=== PATIENT | female | born 1945 | race Caucasian/White ===

== ENCOUNTER 2024-03-02 22:27 | Inpatient (IN) ==
--- NOTE | 2024-03-02 22:38 | Emergency Department Note ---
History of Present Illness General Chief complaint: Illness Stated complaint: COLD LIKE SYMPTOMS History of Present Illness This 78-year-old female with hyperlipidemia, hypertension, and COPD presents ER complaining of fever, chills, cough, congestion and shortness of breath for the past few days steadily getting worse. Other family members have pneumonia. EMS states her sats were in the mid 80s and improved with nebulizer and oxygen. Patient states she does not smoke. Patient denies chest pain, abdominal pain, vomiting, diarrhea. Pulse ox is 90% on room air. Home Medications Medication Instructions Recorded Confirmed Type ascorbate calcium (vitamin C) 500 500 mg PO DAILY 04/07/19 07/06/23 History mg tablet multivitamin 1 cap PO DAILY 04/07/19 07/06/23 History omega-3 fatty acids 1,000 mg 1,000 mg PO DAILY 04/07/19 07/06/23 History capsule (Fish Oil Concentrate) calcium carb-magnesium carb 250 1 tab PO DAILY 06/28/20 07/06/23 History mg-300 mg tablet cholecalciferol (vitamin D3) 25 25 mcg PO DAILY 06/28/20 07/06/23 History mcg (1,000 unit) capsule fluticasone furoate 200 1 inh inhalation DAILY #3 Inhalers 02/26/22 07/06/23 Rx mcg-vilanterol 25 mcg/dose inhalation powder (Breo Ellipta) losartan 25 mg tablet 25 mg PO DAILY #90 tabs 09/15/23 Rx albuterol sulfate 90 mcg/actuation 2 puff inhalation QID PRN 01/21/24 Rx aerosol inhaler shortness of breath or wheezing #18 grams Allergies Allergy/AdvReac Type Severity Reaction Status Date / Time amlodipine Allergy Verified 07/06/23 09:47 Past Med/Surg History Problem List (Updated 03/03/24 @ 00:56 by Karely Rob PA-C) Hypoxia (Acute) Infection due to human metapneumovirus (hMPV) (Acute) Acute exacerbation of chronic obstructive pulmonary disease (Acute) Allergic rhinitis Acute sinusitis Nail abnormalities Hyperlipidemia (Chronic) HTN (hypertension), benign (Chronic) COPD (chronic obstructive pulmonary disease) (Chronic) Social anxiety disorder (Chronic) Routine health maintenance (Chronic) Tachycardia (Chronic) Medical History Hyperlipidemia Social anxiety disorder COPD (chronic obstructive pulmonary disease) HTN (hypertension), benign Surgical History Hx of tonsillectomy Family History Denies family history of Ovarian cancer Prostate cancer Myocardial infarction Breast cancer Colorectal cancer Social History Smoking Status: Former smoker Second Hand Exposure: No; Do You Dip or Chew Tobacco: No; Hx Alcohol Use: No Hx Substance Use: No Preferred Language: Yakut Communication Ability: Effective Visual Impairment: No Limitations Hearing Ability: Normal Home Appliance Tech Required: No Beliefs That Will Affect Care: None marital status: Current Living Situation: Alone current occupational status: retired How many Children do You have: 2 Feels Safe at Home: Yes Childhood Exposure to Second-Hand Smoke: Yes Diet: regular caffeine: Yes during the past year weight has: remained stable Dental Care, Regularly: Yes Physical Activity Frequency: 3-4 Times per Week Seatbelt Use: always Sunscreen Use: Yes Assistive Devices: None Review of Systems A total of 10 systems reviewed and were otherwise negative Physical Exam Vital Signs Vital Signs - 24 hr 03/02/24 22:39 03/02/24 22:40 03/02/24 22:40 Temperature 37.1 C 37.1 C Temperature Source Oral Oral Pulse Rate 106 H 107 H Pulse Rate [Apical] 103 H Pulse Rate from SpO2 Sensor Pulse Rhythm [Apical] Regular Respiratory Rate 20 23 Respiratory Effort / Characteristics Non-Labored Spontaneous Non-Labored Spontaneous Respiratory Depth Normal Normal Respiratory Pattern Regular Blood Pressure 158/96 H Blood Pressure [Right Arm] 158/96 H Blood Pressure Mean 116 Blood Pressure Mean [Right Arm] 116 Pulse Oximetry 94 93 Oxygen Delivery Method Nasal Cannula Nasal Cannula Oxygen Flow Rate 2 2 Sepsis Recent Fever Within 48 Hours No Sepsis New/Unexplained Change in Mental Status No Sepsis Action Taken by Nursing No Action Required 03/02/24 22:40 03/02/24 22:57 03/02/24 23:39 Temperature Temperature Source Pulse Rate 101 H 98 H Pulse Rate [Apical] Pulse Rate from SpO2 Sensor 101 H 99 H Pulse Rhythm [Apical] Respiratory Rate 22 28 H Respiratory Effort / Characteristics Respiratory Depth Respiratory Pattern Blood Pressure 142/93 H 169/109 H Blood Pressure [Right Arm] Blood Pressure Mean 109 129 Blood Pressure Mean [Right Arm] Pulse Oximetry 93 99 94 Oxygen Delivery Method Nasal Cannula Nasal Cannula Oxygen Flow Rate 2 3 Sepsis Recent Fever Within 48 Hours Sepsis New/Unexplained Change in Mental Status Sepsis Action Taken by Nursing 03/03/24 00:30 03/03/24 01:54 03/03/24 02:03 Temperature Temperature Source Pulse Rate 93 H 80 79 Pulse Rate [Apical] Pulse Rate from SpO2 Sensor 93 H 80 79 Pulse Rhythm [Apical] Respiratory Rate 20 17 18 Respiratory Effort / Characteristics Respiratory Depth Respiratory Pattern Blood Pressure 145/83 H 148/96 H 125/71 Blood Pressure [Right Arm] Blood Pressure Mean 103 113 89 Blood Pressure Mean [Right Arm] Pulse Oximetry 91 92 91 Oxygen Delivery Method Nasal Cannula Nasal Cannula Nasal Cannula Oxygen Flow Rate 3 3 3 Sepsis Recent Fever Within 48 Hours Sepsis New/Unexplained Change in Mental Status Sepsis Action Taken by Nursing VITALS: Vitals are noted on the nurse's note and reviewed by myself. Vital signs stable. GENERAL: Pleasant elderly female coughing, in no acute distress, nondiaphoretic, well-developed well-nourished. SKIN: The skin was without rashes, erythema, edema, or bruising. There is no tenting of the skin. Capillary reflex less than 2 seconds. HEAD: Normocephalic atraumatic. EARS: External auditory canals clear EYES: Pupils equal round and reactive to light and accommodation. Conjunctivae without injection, sclerae without icterus. Extraocular movements intact. NOSE: Patent, no discharge. MOUTH: Mucous membranes moist. Pharynx without erythema or exudate. Uvula midline. Airway patent. Tongue does not deviate. NECK: Supple without nuchal rigidity. No lymphadenopathy. No thyromegaly. Cervical spine is nontender. No JVD. HEART: Regular rate and rhythm LUNGS: Diffuse inspiratory and end expiratory wheezes. no retractions or accessory muscle use. ABDOMEN: Positive bowel sounds x 4. Normal tympanic percussion. Soft, nontender, without masses or organomegaly. Li sign negative. No guarding or rebound tenderness. No CVA tenderness MUSCULOSKELETAL: No muscle atrophy, erythema, or edema noted. NEURO: Patient was alert and oriented to person place and time. Normal sensation to light and sharp touch. No focal neurological deficits. Course Administered Medications Discontinued Medications Albuterol (Albut/Ipratrop 3mg/0.5mg Neb 3 Ml Vial) 3 ml NEB NOW STA; Protocol Stop: 03/02/24 22:36 Last Admin: 03/02/24 22:51 Dose: 3 ml Documented By: ALVERTO Piperacillin Sod/Tazobactam Sod (Zosyn) 4.5 gm in 100 mls @ 200 mls/hr IV NOW ONE; Protocol Stop: 03/02/24 23:58 Last Infusion: 03/03/24 02:09 Dose: Infused Documented By: Admin: 03/03/24 00:43 Dose: 200 mls/hr Documented By: XIMENA Ioversol (Optiray 320 125ml) 119 ml IV ONCE ONE Stop: 03/03/24 00:18 Last Admin: 03/03/24 00:18 Dose: 119 ml Documented By: JEANETTE Methylprednisolone (Methylprednisolone 125 Mg/2 Ml Vial) 125 mg IV NOW STA Stop: 03/02/24 22:36 Last Admin: 03/02/24 22:50 Dose: 125 mg Documented By: ALVERTO Medical Decision Making Medical Records Attestation: I reviewed the patient's medical records. Home Medications Current Medication List: was personally reviewed by me Laboratory Data Attestation: I reviewed the patient's lab results. 03/02/24 22:37 03/02/24 22:37 Lab Results 03/02/24 03/02/24 03/03/24 Range/Units 22:37 23:42 00:42 WBC 8.19 (4.8-10.8) K/ul RBC 5.13 (4.20-5.40) M/uL Hgb 15.6 (12.0-16.0) g/dl Hct 45.6 (37.0-47.0) % MCV 88.9 (80.0-100.0) fL MCH 30.4 (25.0-34.0) pg MCHC 34.2 (32.0-36.0) g/dL RDW Std Deviation 41.8 (36.4-46.3) fL RDW Coeff of Pravin 12.8 (11.5-14.5) % Plt Count 298 (130-400) K/uL MPV 10.5 (9.4-12.4) fL Immature Gran % (Auto) 0.1 % Neut % (Auto) 62.6 % Lymph % (Auto) 24.3 % [place] % (Auto) 9.4 % Eos % (Auto) 2.4 % Baso % (Auto) 1.2 % Neut # (Auto) 5.12 (1.40-6.50) K/uL Lymph # (Auto) 1.99 (1.20-3.40) K/uL [place] # (Auto) 0.77 H (0.11-0.59) K/uL Eos # (Auto) 0.20 (0.00-0.50) K/uL Baso # (Auto) 0.10 (0.00-0.20) K/uL Immature Gran # (Auto) 0.01 (0.01-0.20) K/uL VBG pH 7.40 (7.36-7.41) VBG pCO2 50 (38-50) mmHg VBG pO2 29 mmHg VBG HCO3 31 mmol/L VBG O2 Saturation < 60.0 % VBG Base Excess 5.0 mEq/L Sodium 138 (136-145) mmol/L Potassium 3.4 L (3.5-5.1) mmol/L Chloride 101 (98-107) mmol/L Carbon Dioxide 27 (21-32) mmol/L Anion Gap 10 (3-11) BUN 9 (6-23) mg/dl Creatinine 0.70 (0.6-1.2) mg/dl Est Cr Clr Drug Dosing 56.9 ml/min eGFR 88.47 BUN/Creatinine Ratio 12.9 (10-20) Glucose 112 H (70-99(Fasting)) mg/dl Lactate 0.8 (0.4-2.0) mmol/L Calcium 9.2 (8.6-10.3) mg/dl Magnesium 2.1 (1.7-2.4) mg/dl Total Bilirubin 0.5 (0.2-1.0) mg/dl Direct Bilirubin 0.0 (0-0.2) mg/dl AST 26 (13-39) U/L ALT 14 (7-52) U/L Alkaline Phosphatase 94 (34-104) U/L Troponin I High Sens 4.4 (0-14) pg/ml Total Protein 7.6 (6.0-8.3) gm/dl Albumin 4.3 (3.4-5.0) gm/dl Procalcitonin 0.05 (0-0.5) ng/ml Urine Color Yellow Urine Appearance Clear (Clear) Urine pH 6.5 (4.5-7.5) Ur Specific [place] 1.027 (1.000-1.030) Urine Protein Negative (Negative) Urine Glucose (UA) Negative (Negative) Urine Ketones 2+ H (Negative) Urine Blood Negative (Negative) Urine Nitrite Negative (Negative) Urine Bilirubin Negative (Negative) Urine Urobilinogen Negative (Negative) Ur Leukocyte Esterase 2+ H (Negative) Urine WBC (Auto) 6-10 H (0-5) /hpf Urine RBC (Auto) 0-2 (0-2) /hpf U Hyaline Cast (Auto) 0-2 (0-2) /lpf U Epithel Cells (Auto) 0-2 (0-2) /hpf Urine Bacteria (Auto) None Seen (None Seen) Adenovirus (PCR) Not Detected (NotDetected) B. pertussis DNA (PCR) Not Detected (NotDetected) B.parapertussis DNA PCR Not Detected (NotDetected) C. pneumoniae DNA (PCR) Not Detected (NotDetected) Coronavirus OC43 (PCR) Not Detected (NotDetected) Coronavirus HKU1 (PCR) Not Detected (NotDetected) Coronavirus 229E (PCR) Not Detected (NotDetected) SARS-CoV-2 (PCR) Not Detected (NotDetected) Coronavirus NL63 (PCR) Not Detected (NotDetected) Human Metapneumovir PCR DETECTED A (NotDetected) Influenza Type A (PCR) Not Detected (NotDetected) Influenza Type B (PCR) Not Detected (NotDetected) M. pneumoniae (PCR) Not Detected (NotDetected) Parainfluenza 1 (PCR) Not Detected (NotDetected) Parainfluenza 2 (PCR) Not Detected (NotDetected) Parainfluenza 3 (PCR) Not Detected (NotDetected) Parainfluenza 4 (PCR) Not Detected (NotDetected) RSV (PCR) Not Detected (NotDetected) Entero/Rhino (PCR) Not Detected (NotDetected) Imaging Data Attestation: I personally reviewed and interpreted this imaging study as follows: Radiologist's Impression: Chest X-Ray 03/02/24 22:36 Exam(s): XR CXR 1 VIEW EXAM: XR Chest, 1 View CLINICAL HISTORY: Sepsis. TECHNIQUE: Frontal view of the chest. COMPARISON: No relevant prior studies available. FINDINGS: Lungs: No focal consolidation. Presumed chronic reticulonodular interstitial changes involving the lower lung zones. No significant fibrotic changes suspected. The pulmonary vasculature demonstrates no significant radiographic abnormality. Pleural space: Unremarkable. No pneumothorax. No large pleural effusion. Heart: Unremarkable. No cardiomegaly. Mediastinum: No significant abnormality identified. The trachea is midline. Bones/joints: Unremarkable. No acute fracture. IMPRESSION: No focal consolidation or acute cardiopulmonary process identified. Electronically signed by: Terry Villegas MD 03/03/24 00:48 AM Chest CTA 03/02/24 23:29 EXAM: CT angio chest PE protocol CLINICAL HISTORY: pt c/o SOB worsening this evening. pt states she has been sick since , but fel her symptoms had improved until 4 days ago. pt states her son has pneumonia currently. pt c/o productive cough w/ yellow sputum. afebrile currently. denies chest pain. 119 ml opti 320 PW TECHNIQUE: Contiguous axial images were obtained from the neck base through the upper abdomen following intravenous administration of iodinated contrast material. Angiographic images were processed, 3D MIP images were acquired for interpretation. If IV contrast material had not been administered, the likelihood of detecting abnormalities relevant to the patient's condition would have been substantially decreased. Coronal and sagittal 3-D MIPs were likewise performed and indicated to increase the sensitivity of detectin diffuse clinically relevant pathology. CT scan was performed according to ALARA (as low as reasonable achievable). COMPARISON: None. FINDINGS: Diffuse centrilobular and panlobular emphysema are noted involving bilateral lungs. Adequate contrast bolus without evidence of pulmonary embolism. The central airways are patent. The lungs are clear. No pleural effusion. The heart, aorta, and pulmonary arteries are of normal size and configuration. There are e coronary artery and aortic atherosclerotic calcifications. No pericardial effusion is identified. The thyroid is unremarkable. No mediastinal, hilar, or axillary lymphadenopathy is noted. No suspicious lytic or sclerotic osseous lesions are identified. IMPRESSION: Diffuse centrilobular and panlobular emphysema are noted involving bilateral lungs. No evidence of pulmonary embolism. Electronically signed by Dwight Griggs 03-03-2024 02:12 AM MDM Narrative Prior records/ancillary studies reviewed. Triage Nursing notes reviewed. Additional history obtained from EMS. The patient's history was concerning for breathing issues and fever. Differential diagnosis: Etiologies such as COPD exacerbation, viral syndrome, otitis, pharyngitis, pneumonia, influenza, meningitis, urinary tract infection, sepsis, bacteremia, as well as others were entertained. Physical examination: As above ER treatment provided: An order was placed for continuous cardiac monitoring. The monitor shows a rate of 60-100 with a sinus rhythm per my interpretation. Nebulizer, Solu-Medrol, Zosyn for possible pneumonia On reassessment the patient felt better. Diagnostics interpreted by me: ECG: Ordered for dyspnea EKG: Normal sinus, normal intervals, no acute ST-T wave changes. Impression sinus tachycardia 107 independently interpreted by myself The labs Independently Interpreted by myself revealed no worrisome leukocytosis, negative procalcitonin. Positive human metapneumovirus Blood cultures pending Imaging studies: Imaging was reviewed and read by radiology as above Consultation: A consultation was placed with hospitalist. The case was discussed and diagnostics were reviewed. The patient was evaluated in the ER for further treatment. This appears to be consistent with COPD exacerbation with human metapneumovirus. Patient was hypoxic on room air. She did improve after being medicated as above. Medicine was consulted case is discussed. She will be admitted to the medical service. By the evaluation outlined above emergent etiologies such as otitis, pharyngitis, meningitis, urinary tract infection, sepsis, bacteremia, as well as others were deemed relatively unlikely. The pt informed about the findings as listed above. All questions were answered and pleased with the treatment. The chart was completed utilizing [employer] Speech voice recognition software. Grammatical errors, random word insertions, pronoun errors, and incomplete sentences are an occassional consequence of this system due to software limitations, ambient noise, and hardware issues. Any formal questions or concerns about the content, text, or information contained within the body of this dictation should be directly addressed to the physician drug safety assistant for clarification. Impression & Plan Acute exacerbation of chronic obstructive pulmonary disease, Infection due to human metapneumovirus (hMPV), Hypoxia Discharge Plan Visit Data Chief Complaint: Illness Stated Complaint: COLD LIKE SYMPTOMS ED Provider: rKistine Lomas ED Midlevel Provider: Karely Rob Discharge Problem: Acute exacerbation of chronic obstructive pulmonary disease, Infection due to human metapneumovirus (hMPV), Hypoxia Patient Disposition: Admitted As Inpatient Condition: Fair Discharge Instructions Interventions: ED Discharge Assessment Last Done: 03/03/24 02:14 Forms Stand Alone Forms: My [facility] [employer] Prescriptions Prescriptions: No Action Breo Ellipta 200-25 mcg/dose blister with device 1 inh inhalation DAILY Qty: 3 1RF losartan 25 mg tablet 25 mg PO DAILY Qty: 90 1RF albuterol sulfate 90 mcg/actuation HFA aerosol inhaler 2 puff INH QID PRN (Reason: shortness of breath or wheezing) Qty: 18 1RF multivitamin Capsule 1 cap PO DAILY ascorbate calcium (vitamin C) 500 mg tablet 500 mg PO DAILY omega-3 fatty acids [Fish Oil Concentrate] 1,000 mg capsule 1,000 mg PO DAILY cholecalciferol (vitamin D3) 25 mcg (1,000 unit) capsule 25 mcg PO DAILY calcium carb-magnesium carb 250-300 mg tablet 1 tab PO DAILY Referrals Referrals: Nicky Aldana MD [Primary Care Provider] -
[2024-03-02] MEDS: methylPREDNISolone 125 MG/2 ML VIAL IV STA (22:50)
[2024-03-02] MEDS: ALBUT/IPRATROP 3MG/0.5MG NEB 3 ML VIAL NEB STA (22:51)
[2024-03-02 22:56] LABS: Basophils % (auto) 1.2 %; Eosinophils % (auto) 2.4 %; Hematocrit (blood only) 45.6 % (37.0-47.0); Hemoglobin 15.6 g/dl (12.0-16.0); Immature Granulocytes # (auto) 0.01 K/uL (0.01-0.20); Immature Granulocytes % (auto) 0.1 %; Lymphocytes # (auto) 1.99 K/uL (1.20-3.40); Lymphocytes % (auto) 24.3 %; Mean Corpuscular Hemoglobin 30.4 pg (25.0-34.0); Mean Corpuscular Hgb Conc 34.2 g/dL (32.0-36.0); Mean Corpuscular Volume 88.9 fL (80.0-100.0); Mean Platelet Volume 10.5 fL (9.4-12.4); Monocytes # (auto) 0.77 K/uL (0.11-0.59); Monocytes % (auto) 9.4 %; Neutrophils # (auto) 5.12 K/uL (1.40-6.50); Neutrophils % (auto) 62.6 %; Platelet Count 298 K/uL (130-400); RDW Coefficient of Variation 12.8 % (11.5-14.5); RDW Standard Deviation 41.8 fL (36.4-46.3); Red Blood Count 5.13 M/uL (4.20-5.40); White Blood Count 8.19 K/ul (4.8-10.8)
[2024-03-02 23:12] LABS: Albumin Level 4.3 gm/dl (3.4-5.0); BUN Creatinine Ratio 12.9 (10-20); Bilirubin,Total 0.5 mg/dl (0.2-1.0); Calcium 9.2 mg/dl (8.6-10.3); Creatinine Clr Calc Pharmacy 56.9 ml/min; Magnesium 2.1 mg/dl (1.7-2.4); Potassium 3.4 mmol/L (3.5-5.1); Total Protein 7.6 gm/dl (6.0-8.3)
[2024-03-02 23:18] LABS: Troponin I High Sensitivity 4.4 pg/ml (0-14)
--- NOTE | 2024-03-02 23:23 | Emergency Department Note ---
ED Visit Note I was consulted by the Advanced Practice Provider. I personally made/approved the management plan and take responsibility for the patient management. I performed a substantive portion of the visit. This includes the aspects of: -History/Physical -MDM
[2024-03-02 23:40] LABS: Adenovirus PCR Not Detected (NotDetected); Bordetella parapertussis PCR Not Detected (NotDetected); Bordetella pertussis PCR Not Detected (NotDetected); Chlamydia pneumoniae PCR Not Detected (NotDetected); Coronavirus 229E PCR Not Detected (NotDetected); Coronavirus CoV-2 (COVID19)PCR Not Detected (NotDetected); Coronavirus HKU1 PCR Not Detected (NotDetected); Coronavirus NL63 PCR Not Detected (NotDetected); Coronavirus OC43PCR Not Detected (NotDetected); Human Metapneumovirus PCR DETECTED (NotDetected); Influenza A PCR Not Detected (NotDetected); Influenza B PCR Not Detected (NotDetected); Mycoplasma pneumoniae PCR Not Detected (NotDetected); Parainfluenza Virus 1 PCR Not Detected (NotDetected); Parainfluenza Virus 2 PCR Not Detected (NotDetected); Parainfluenza Virus 3 PCR Not Detected (NotDetected); Parainfluenza Virus 4 PCR Not Detected (NotDetected); Respiratory Syncytial VirusPCR Not Detected (NotDetected); Rhinovirus/Enterovirus PCR Not Detected (NotDetected)
[2024-03-02 23:58] LABS: HCO3 VBG 31 mmol/L; Oxygen Saturation VBG < 60.0 %; PCO2 VBG 50 mmHg (38-50); PO2 VBG 29 mmHg
[2024-03-03] MEDS: OPTIRAY 320 125ml IV ONE (00:18)
[2024-03-03] MEDS: PIPERACILLIN/TAZOBACTAM 4.5 GM/100 ML BAG IV ONE (00:43)
--- NOTE | 2024-03-03 00:49 | XRay Report ---
Exam(s): XR CXR 1 VIEW EXAM: XR Chest, 1 View CLINICAL HISTORY: Sepsis. TECHNIQUE: Frontal view of the chest. COMPARISON: No relevant prior studies available. FINDINGS: Lungs: No focal consolidation. Presumed chronic reticulonodular interstitial changes involving the lower lung zones. No significant fibrotic changes suspected. The pulmonary vasculature demonstrates no significant radiographic abnormality. Pleural space: Unremarkable. No pneumothorax. No large pleural effusion. Heart: Unremarkable. No cardiomegaly. Mediastinum: No significant abnormality identified. The trachea is midline. Bones/joints: Unremarkable. No acute fracture. IMPRESSION: No focal consolidation or acute cardiopulmonary process identified. Electronically signed by: Terry Villegas MD 03/03/24 00:48 AM
[2024-03-03 00:59] LABS: Appearance Urine Clear (Clear); Bacteria Urine Automated None Seen (None Seen); Bilirubin Urine Negative (Negative); Blood Urine Negative (Negative); Cast Urine Automated 0-2 /lpf (0-2); Color Urine Yellow; Epithelial Cell Urine Auto 0-2 /hpf (0-2); Glucose Urine UA Negative (Negative); Ketones Urine 2+ (Negative); Leukocyte Esterase Urine 2+ (Negative); Nitrite Urine Negative (Negative); Protein Urine Negative (Negative); RBC Urine Automated 0-2 /hpf (0-2); Specific Gravity Urine 1.027 (1.000-1.030); Urobilinogen Urine Negative (Negative); pH Urine 6.5 (4.5-7.5)
--- NOTE | 2024-03-03 01:13 | History & Physical Report ---
Date of Service March 03, 2024 Assessment & Plan (1) Hypoxia: (2) Infection due to human metapneumovirus (hMPV): (3) Acute exacerbation of chronic obstructive pulmonary disease: Plan Human Metapneumovirus (hMPV) | Acute Hypoxemic Respiratory Failure | History of COPD -CXR shows no acute cardiopulmonary findings. CTA chest reads "Diffuse centrilobular and panlobular emphysema are noted involving bilateral lungs" -Respiratory biofire positive for human metapneumovirus -Negative procal, no leukocytosis. Afebrile. Blood cultures collected. Received Zosyn in ED, lower suspicion for bacterial etiology. -Currently on 3L NC at 92%, no baseline oxygen requirement. Wean as able -Ordered Duonebs PRN, Guaifenesin. With ?history of COPD will add azithromycin for anti-inflammatory properties -Repeat a.m. CBC Hypokalemia -K 3.4 on admission -Will replete and recheck BMP in a.m. Admit to: med/tele VTE Prophylaxis: Lovenox Diet: Heart healthy Code Status: DNR/DNI History of Present Illness Primary Care Provider: Nicky Aldana MD Albina Degroot is a 78 year-old female with medical history significant for HTN, HLD, tachycardia, COPD who presented to [facility] ED via EMS due to hypoxia. States she has been sick since about Thanksgi- has never fully recovered. States that she has many family members around her who are sick, states her son currently has pneumonia. States she lives alone, is independent in her daily activities but has not done much except sit at home for the past few days as she has felt unwell. States she had pneumonia about 7years ago and was given inhalers for that, but does not recall other pulmonary diagnoses in the past. Denies fever, but feels feverish. Decreased appetite but adequate PO intake. Denies nausea/vomiting/diarrhea. States her pulse ox before coming in was "in the 80s%". Endorses productive cough and worsening SOB, although feels that her breathing has improved since being on the oxygen in the ED. Denies chest pain. ED Course: -CXR -CTA chest -CBC, CMP, blood cultures, UA -Zosyn, IV solumedrol Allergies Allergy/AdvReac Type Severity Reaction Status Date / Time amlodipine Allergy Verified 07/06/23 09:47 Home Medications Medication Instructions Recorded Confirmed Type ascorbate calcium (vitamin C) 500 500 mg PO DAILY 04/07/19 07/06/23 History mg tablet multivitamin 1 cap PO DAILY 04/07/19 07/06/23 History omega-3 fatty acids 1,000 mg 1,000 mg PO DAILY 04/07/19 07/06/23 History capsule (Fish Oil Concentrate) calcium carb-magnesium carb 250 1 tab PO DAILY 06/28/20 07/06/23 History mg-300 mg tablet cholecalciferol (vitamin D3) 25 25 mcg PO DAILY 06/28/20 07/06/23 History mcg (1,000 unit) capsule fluticasone furoate 200 1 inh inhalation DAILY #3 Inhalers 02/26/22 07/06/23 Rx mcg-vilanterol 25 mcg/dose inhalation powder (Breo Ellipta) losartan 25 mg tablet 25 mg PO DAILY #90 tabs 09/15/23 Rx albuterol sulfate 90 mcg/actuation 2 puff inhalation QID PRN 01/21/24 Rx aerosol inhaler shortness of breath or wheezing #18 grams Past Med/Surg History Problem List Hypoxia (Acute) Infection due to human metapneumovirus (hMPV) (Acute) Acute exacerbation of chronic obstructive pulmonary disease (Acute) Allergic rhinitis Acute sinusitis Nail abnormalities Hyperlipidemia (Chronic) HTN (hypertension), benign (Chronic) COPD (chronic obstructive pulmonary disease) (Chronic) Social anxiety disorder (Chronic) Routine health maintenance (Chronic) Tachycardia (Chronic) Surgical History Hx of tonsillectomy Family History Denies family history of Ovarian cancer Prostate cancer Myocardial infarction Breast cancer Colorectal cancer Social History Smoking Status: Former smoker Tobacco Type: Cigarettes Second Hand Exposure: No; Do You Dip or Chew Tobacco: No; Hx Alcohol Use: No Hx Substance Use: No Preferred Language: Angolan Communication Ability: Effective Visual Impairment: No Limitations Hearing Ability: Normal Rail Layer Required: No Beliefs That Will Affect Care: None marital status: Current Living Situation: Alone current occupational status: retired How many Children do You have: 2 Other Information That Helps Us Care for You: No Feels Safe at Home: Yes Safety Concerns: Feels Safe At This Time Childhood Exposure to Second-Hand Smoke: Yes Diet: regular caffeine: Yes during the past year weight has: remained stable Dental Care, Regularly: Yes Physical Activity Frequency: 3-4 Times per Week Seatbelt Use: always Sunscreen Use: Yes Assistive Devices: None Review of Systems 2 Review of Systems: As per above Physical Exam 2 Constitutional: WD/WN, vitals as above Eyes: + anicteric sclerae; no conjunctival abn ormality ENMT: Ears: no external ear abnormality Nose: no external nose abnormality moist mucous membranes Respiratory: no respiratory distress and does not use accessory muscles A uscultation: + diminished lung sounds Gastrointestinal (Abdomen): Inspection/Auscultation: abdomen normal to inspection; abdomen not distended Percussion/Palpation: abdomen soft; abdomen nontender Musculoskeletal: Moves all limbs independently Skin: no rashes, warm and dry Psychiatric: A+Ox3, euthymic affect Results & Data Results & Data Vital Signs (Past 12 Hours) Vital Signs Temp Pulse Pulse Resp BP BP Pulse Ox 03/03/24 00:30 93 H 20 145/83 H 91 03/02/24 23:39 98 H 28 H 169/109 H 94 03/02/24 22:57 101 H 22 142/93 H 99 03/02/24 22:40 93 03/02/24 22:40 37.1 C 103 H 23 158/96 H 93 03/02/24 22:40 37.1 C 107 H 20 158/96 H 94 03/02/24 22:39 106 H O2 Del Method O2 Flow Rate 03/03/24 00:30 Nasal Cannula 3 03/02/24 23:39 Nasal Cannula 3 03/02/24 22:57 03/02/24 22:40 Nasal Cannula 2 03/02/24 22:40 Nasal Cannula 2 03/02/24 22:40 Nasal Cannula 2 03/02/24 22:39 Laboratory Results 03/03/24 05:48 03/03/24 05:48 Diagnostic Findings Chest X-Ray 03/02/24 22:36 Exam(s): XR CXR 1 VIEW EXAM: XR Chest, 1 View CLINICAL HISTORY: Sepsis. TECHNIQUE: Frontal view of the chest. COMPARISON: No relevant prior studies available. FINDINGS: Lungs: No focal consolidation. Presumed chronic reticulonodular interstitial changes involving the lower lung zones. No significant fibrotic changes suspected. The pulmonary vasculature demonstrates no significant radiographic abnormality. Pleural space: Unremarkable. No pneumothorax. No large pleural effusion. Heart: Unremarkable. No cardiomegaly. Mediastinum: No significant abnormality identified. The trachea is midline. Bones/joints: Unremarkable. No acute fracture. IMPRESSION: No focal consolidation or acute cardiopulmonary process identified. Electronically signed by: Terry Villegas MD 03/03/24 00:48 AM Chest CTA 03/02/24 23:29 EXAM: CT angio chest PE protocol CLINICAL HISTORY: pt c/o SOB worsening this evening. pt states she has been sick since , but fel her symptoms had improved until 4 days ago. pt states her son has pneumonia currently. pt c/o productive cough w/ yellow sputum. afebrile currently. denies chest pain. 119 ml opti 320 PW TECHNIQUE: Contiguous axial images were obtained from the neck base through the upper abdomen following intravenous administration of iodinated contrast material. Angiographic images were processed, 3D MIP images were acquired for interpretation. If IV contrast material had not been administered, the likelihood of detecting abnormalities relevant to the patient's condition would have been substantially decreased. Coronal and sagittal 3-D MIPs were likewise performed and indicated to increase the sensitivity of detectin diffuse clinically relevant pathology. CT scan was performed according to ALARA (as low as reasonable achievable). COMPARISON: None. FINDINGS: Diffuse centrilobular and panlobular emphysema are noted involving bilateral lungs. Adequate contrast bolus without evidence of pulmonary embolism. The central airways are patent. The lungs are clear. No pleural effusion. The heart, aorta, and pulmonary arteries are of normal size and configuration. There are e coronary artery and aortic atherosclerotic calcifications. No pericardial effusion is identified. The thyroid is unremarkable. No mediastinal, hilar, or axillary lymphadenopathy is noted. No suspicious lytic or sclerotic osseous lesions are identified. IMPRESSION: Diffuse centrilobular and panlobular emphysema are noted involving bilateral lungs. No evidence of pulmonary embolism. Electronically signed by Dwight Griggs 03-03-2024 02:12 AM Supervising Physician Co-Signing Physician Notes Patient seen and examined, chart reviewed, case discussed with Dr. May and I agree with the assessment and plan as above. In brief, patient is a 78yo female with COPD presenting with acute hypoxic respiratory failure in setting of human metapneumovirus infection. Patient presently saturating well on 3L NC Resting comfortably in bed, NAD- having her AM blood drawn at present Remainder of exam as per HPI Labs and imaging reviewed Respiratory biofire panel POSITIVE for human metapneumovirus CXR as above Assessment and plan -Supplemental O2 as needed -Supportive care -Remainder as above Resident Activity Tracking Resident Involvement: Resident Care Provided Care Provided: Adult Hospital Medicine
--- NOTE | 2024-03-03 02:13 | CT Scan Report ---
EXAM: CT angio chest PE protocol CLINICAL HISTORY: pt c/o SOB worsening this evening. pt states she has been sick since thanksgi, but fel her symptoms had improved until 4 days ago. pt states her son has pneumonia currently. pt c/o productive cough w/ yellow sputum. afebrile currently. denies chest pain. 119 ml opti 320 PW TECHNIQUE: Contiguous axial images were obtained from the neck base through the upper abdomen following intravenous administration of iodinated contrast material. Angiographic images were processed, 3D MIP images were acquired for interpretation. If IV contrast material had not been administered, the likelihood of detecting abnormalities relevant to the patient's condition would have been substantially decreased. Coronal and sagittal 3-D MIPs were likewise performed and indicated to increase the sensitivity of detectin diffuse clinically relevant pathology. CT scan was performed according to ALARA (as low as reasonable achievable). COMPARISON: None. FINDINGS: Diffuse centrilobular and panlobular emphysema are noted involving bilateral lungs. Adequate contrast bolus without evidence of pulmonary embolism. The central airways are patent. The lungs are clear. No pleural effusion. The heart, aorta, and pulmonary arteries are of normal size and configuration. There are e coronary artery and aortic atherosclerotic calcifications. No pericardial effusion is identified. The thyroid is unremarkable. No mediastinal, hilar, or axillary lymphadenopathy is noted. No suspicious lytic or sclerotic osseous lesions are identified. IMPRESSION: Diffuse centrilobular and panlobular emphysema are noted involving bilateral lungs. No evidence of pulmonary embolism. Electronically signed by Dwight Griggs 03-03-2024 02:12 AM
[2024-03-03] MEDS ORDERED: ONDANSETRON INJ 2 MG/ML 2 ML VIAL IV PRN (02:49)
[2024-03-03] MEDS ORDERED: ACETAMINOPHEN 325 MG TAB PO PRN (02:49)
[2024-03-03 06:06] LABS: Hematocrit (blood only) 42.7 % (37.0-47.0); Hemoglobin 14.5 g/dl (12.0-16.0); Mean Corpuscular Hemoglobin 30.1 pg (25.0-34.0); Mean Corpuscular Volume 88.6 fL (80.0-100.0); Mean Platelet Volume 10.5 fL (9.4-12.4); Platelet Count 284 K/uL (130-400); RDW Coefficient of Variation 12.9 % (11.5-14.5); RDW Standard Deviation 42.1 fL (36.4-46.3); Red Blood Count 4.82 M/uL (4.20-5.40); White Blood Count 6.06 K/ul (4.8-10.8)
[2024-03-03 06:26] LABS: Basophils # (auto) 0.03 K/uL (0.00-0.20); Basophils % (auto) 0.5 %; Immature Granulocytes # (auto) 0.01 K/uL (0.01-0.20); Immature Granulocytes % (auto) 0.2 %; Lymphocytes % (auto) 9.9 %; Monocytes % (auto) 1.7 %; Neutrophils # (auto) 5.32 K/uL (1.40-6.50); Neutrophils % (auto) 87.7 %
[2024-03-03 06:28] LABS: Albumin Globulin Ratio 1.3 (0.9-2); Albumin Level 3.8 gm/dl (3.4-5.0); BUN Creatinine Ratio 13.4 (10-20); Bilirubin,Total 0.4 mg/dl (0.2-1.0); Calcium 8.8 mg/dl (8.6-10.3); Creatinine Clr Calc Pharmacy 57.9 ml/min; Potassium 3.9 mmol/L (3.5-5.1); Total Protein 6.8 gm/dl (6.0-8.3)
[2024-03-03] MEDS: POTASSIUM CHLORIDE CRTAB 20 MEQ TABCR PO STA (06:31)
--- NOTE | 2024-03-03 06:44 | Billing Data ---
Date of Service March 03, 2024 Coding Level of Care Code 89650 INT INP/OBS CARE
[2024-03-03] MEDS: LOSARTAN POTASSIUM 25 MG TAB PO SCH (08:04)
[2024-03-03] MEDS: guaiFENesin 600 MG TABCR PO SCH (08:04)
[2024-03-03] MEDS: AZITHROMYCIN 250 MG TAB PO SCH (08:04)
[2024-03-03] MEDS: ENOXAPARIN INJ 40 MG/0.4 ML SYR SQ SCH (08:04)
[2024-03-03] MEDS: FLUTICASONE/VILANTEROL 200/25MCG 14 PUFFS/INHALER INH SCH (08:06)
--- NOTE | 2024-03-03 11:10 | Electrocardiogram Report ---
Test Reason : Blood Pressure : */* mmHG Vent. Rate : 107 BPM Atrial Rate : 107 BPM P-R Int : 146 ms QRS Dur : 82 ms QT Int : 356 ms P-R-T Axes : 75 72 66 degrees QTcB Int : 475 ms Sinus tachycardia Otherwise normal ECG No previous ECGs available Confirmed by Amado Duke ([id number]) on 03/03/2024 11:10:07 AM Referred By: REFERRED SELF Confirmed By: Amado Duke
--- NOTE | 2024-03-03 13:28 | Communication Note ---
Date of Service: March 03, 2024 (1) Hypoxia: (2) Infection due to human metapneumovirus (hMPV): (3) Acute exacerbation of chronic obstructive pulmonary disease: Plan Human Metapneumovirus (hMPV) | Acute Hypoxemic Respiratory Failure | History of COPD -CXR shows no acute cardiopulmonary findings. -CTA chest reads "Diffuse centrilobular and panlobular emphysema are noted involving bilateral lungs" -Respiratory biofire + for human metapneumovirus -Negative procal, no leukocytosis. Afebrile. Blood cultures collected. Received Zosyn in ED, lower suspicion for bacterial etiology. -Currently on 3L NC at 94%, no baseline oxygen requirement. Wean as able -Ordered Duonebs PRN, Guaifenesin. With ?history of COPD will add azithromycin for anti-inflammatory properties -added hypertonic saline nebs BID 02/21 -Repeat a.m. CBC Hypokalemia -K 3.4 on admission -repeat 03/03 - potassium 3.9 Disposition: med/tele VTE Prophylaxis: Lovenox Diet: Heart healthy Code Status: DNR/DNI
[2024-03-03] MEDS: SODIUM CHLOR 7% 4 ML NEB NEB SCH (20:17)
[2024-03-04 07:05] LABS: Hematocrit (blood only) 42.2 % (37.0-47.0); Hemoglobin 14.3 g/dl (12.0-16.0); Mean Corpuscular Hemoglobin 30.5 pg (25.0-34.0); Mean Corpuscular Hgb Conc 33.9 g/dL (32.0-36.0); Mean Platelet Volume 10.7 fL (9.4-12.4); Platelet Count 298 K/uL (130-400); RDW Coefficient of Variation 13.1 % (11.5-14.5); Red Blood Count 4.69 M/uL (4.20-5.40); White Blood Count 6.14 K/ul (4.8-10.8)
[2024-03-04] MEDS: ALBUT/IPRATROP 3MG/0.5MG NEB 3 ML VIAL NEB PRN (07:24)
[2024-03-04 07:42] LABS: Basophils # (auto) 0.07 K/uL (0.00-0.20); Basophils % (auto) 1.1 %; Eosinophils % (auto) 3.3 %; Immature Granulocytes # (auto) 0.02 K/uL (0.01-0.20); Immature Granulocytes % (auto) 0.3 %; Lymphocytes # (auto) 2.34 K/uL (1.20-3.40); Lymphocytes % (auto) 38.1 %; Monocytes # (auto) 0.62 K/uL (0.11-0.59); Monocytes % (auto) 10.1 %; Neutrophils # (auto) 2.89 K/uL (1.40-6.50); Neutrophils % (auto) 47.1 %
[2024-03-04 08:30] LABS: Albumin Globulin Ratio 1.3 (0.9-2); Albumin Level 3.9 gm/dl (3.4-5.0); Bilirubin,Total 0.4 mg/dl (0.2-1.0); Calcium 9.1 mg/dl (8.6-10.3); Creatinine Clr Calc Pharmacy 51.3 ml/min; Globulin 3.1 gm/dl (2.5-4.0); Potassium 4.2 mmol/L (3.5-5.1)
--- NOTE | 2024-03-04 15:36 | Hospitalist Progress Note ---
Date of Service March 04, 2024 Assessment & Plan (1) Hypoxia: Plan: Patient presented to the ED on 03/03 for SOB. -CXR shows no acute cardiopulmonary findings. -CTA chest reads "Diffuse centrilobular and panlobular emphysema are noted involving bilateral lungs" -Respiratory biofire + for human metapneumovirus -Negative procal -CBC: w/o leukocytosis -BMP: renal/electrolytes stable. -BC negative at 24h kathy -Hypertonic saline BID -Guaifenesin -hx of COPD - added azithromycin for anti-inflammatory properties -Duonebs prn Currently on room air per recent vital signs. (2) Infection due to human metapneumovirus (hMPV): Plan: see plan above. (3) Acute exacerbation of chronic obstructive pulmonary disease: Plan: see plan above. Plan Chronic conditions: HTN: Losartan Admit to: med/tele VTE Prophylaxis: Lovenox Diet: Heart healthy Code Status: DNR/DNI Admission and Anticipated Discharge Date Admission Date: March 03, 2024 Subjective Patient seen and examined this morning. Patient reports that she had a rough evening in terms of sleep. States that the nebulizers seem to make her cough but she feels better after using them. She states that she feels her SOB has improved today. She was weaned down to 2L via nasal cannula this morning. denied any additional symptoms. Physical Exam Constitutional: WD/WN, vitals as above Eyes: PERRL, conjunctivae normal, anicteric sclerae Respiratory: diminished lung sounds b/l. normal respiratory effort Cardiovascular: RRR, no murmur, no edema Psychiatric: A+Ox3, euthymic affect Results & Data Results & Data Vital Signs (Past 12 Hours) Vital Signs Temp Pulse Pulse Resp BP Pulse Ox Pulse Ox 03/04/24 15:00 36.7 C 89 20 162/86 H 90 03/04/24 14:15 80 03/04/24 13:06 94 03/04/24 12:00 74 16 93 03/04/24 11:04 36.6 C 76 17 119/75 92 03/04/24 10:37 03/04/24 07:24 74 16 93 03/04/24 07:19 36.6 C 74 18 163/91 H 93 03/04/24 07:13 61 03/04/24 03:52 36.6 C 92 H 16 161/90 H 93 Pulse Ox Pulse Ox Pulse Ox O2 Del Method O2 Flow Rate O2 Flow Rate O2 Flow Rate 03/04/24 15:00 Room Air 03/04/24 14:15 03/04/24 13:06 92 93 85 L 2 2 03/04/24 12:00 Room Air 03/04/24 11:04 Nasal Cannula 1.5 03/04/24 10:37 Nasal Cannula 2 03/04/24 07:24 Nasal Cannula 2 03/04/24 07:19 Nasal Cannula 2 03/04/24 07:13 03/04/24 03:52 Nasal Cannula 2 O2 Flow Rate O2 Flow Rate 03/04/24 15:00 03/04/24 14:15 03/04/24 13:06 0 0 03/04/24 12:00 03/04/24 11:04 03/04/24 10:37 03/04/24 07:24 03/04/24 07:19 03/04/24 07:13 03/04/24 03:52 PG Care Time/CCT Total # of Minutes Spent Total Time Spent with Patient: Total time spent is greater than 50% in coordination of care (as documented) at patient's floor/unit and/or counseling patient: Coding Level of Care Code 93158 SUB INP/OBS CARE 2/35MIN Diagnoses Hypoxia R09.02 Infection due to human metapneumovirus (hMPV) B34.8 Acute exacerbation of chronic obstructive pulmonary disease J44.1
[2024-03-04] MEDS: MELATONIN 3 MG TAB PO PRN (22:02)
[2024-03-05 04:56] LABS: Hematocrit (blood only) 43.5 % (37.0-47.0); Hemoglobin 14.2 g/dl (12.0-16.0); Mean Corpuscular Hemoglobin 29.6 pg (25.0-34.0); Mean Corpuscular Hgb Conc 32.6 g/dL (32.0-36.0); Mean Corpuscular Volume 90.6 fL (80.0-100.0); Mean Platelet Volume 10.5 fL (9.4-12.4); Platelet Count 325 K/uL (130-400); White Blood Count 6.92 K/ul (4.8-10.8)
[2024-03-05 05:12] LABS: BUN Creatinine Ratio 28.4 (10-20); Calcium 8.9 mg/dl (8.6-10.3); Creatinine Clr Calc Pharmacy 44.9 ml/min; Potassium 4.4 mmol/L (3.5-5.1)
--- NOTE | 2024-03-05 14:02 | Hospitalist Progress Note ---
Date of Service March 05, 2024 Assessment & Plan (1) Hypoxia: Plan: Patient presented to the ED on 03/03 for SOB. -CXR shows no acute cardiopulmonary findings. -CTA chest reads "Diffuse centrilobular and panlobular emphysema are noted involving bilateral lungs" -Respiratory biofire + for human metapneumovirus -Negative procal -CBC: w/o leukocytosis -BMP: renal/electrolytes stable. -BC negative at 48h kathy -Hypertonic saline BID -Guaifenesin -hx of COPD - azithromycin for anti-inflammatory properties, last dose 03/08. -Duonebs prn 2 step completed by respiratory therapy. Patient requires 2L of oxygen via nasal cannula during ambulation. script filled out with 03/05. Anticipate discharge 03/06 (2) Infection due to human metapneumovirus (hMPV): Plan: see plan above. (3) Acute exacerbation of chronic obstructive pulmonary disease: Plan: see plan above. Plan Chronic conditions: HTN: Losartan Admit to: med/tele VTE Prophylaxis: Lovenox Diet: Heart healthy Code Status: DNR/DNI Admission and Anticipated Discharge Date Admission Date: March 03, 2024 Subjective Patient seen and examined this morning. Patient reports to be feeling better today. She states she has productive cough after using the nebulizers and feels this is getting mucus from her lungs. Reports she was given melatonin last night and got some sleep. She feels she is ready to be discharged soon. Physical Exam Constitutional: WD/WN, vitals as above Eyes: PERRL, conjunctivae normal, anicteric sclerae Respiratory: expiratory wheezing. diminished sounds b/l. normal respiratory effort Cardiovascular: RRR, no murmur, no edema Psychiatric: A+Ox3, euthymic affect Results & Data Results & Data Vital Signs (Past 12 Hours) Vital Signs Temp Pulse Pulse Pulse Pulse Pulse Pulse 03/05/24 13:55 93 H 03/05/24 12:28 109 H 114 H 105 H 03/05/24 07:56 03/05/24 07:46 68 03/05/24 07:22 36.6 C 68 03/05/24 07:08 78 03/05/24 03:02 36.5 C 67 Pulse Resp Resp Resp Resp Resp BP 03/05/24 13:55 03/05/24 12:28 101 H 18 18 16 16 03/05/24 07:56 03/05/24 07:46 16 03/05/24 07:22 18 03/05/24 07:08 03/05/24 03:02 18 101/68 BP Pulse Ox Pulse Ox Pulse Ox Pulse Ox Pulse Ox O2 Del Method 03/05/24 13:55 03/05/24 12:28 94 87 L 90 91 03/05/24 07:56 Room Air 03/05/24 07:46 93 Nasal Cannula 03/05/24 07:22 99/65 L 92 Nasal Cannula 03/05/24 07:08 03/05/24 03:02 91 Nasal Cannula O2 Flow Rate O2 Flow Rate 03/05/24 13:55 03/05/24 12:28 2 03/05/24 07:56 03/05/24 07:46 2 03/05/24 07:22 2 03/05/24 07:08 03/05/24 03:02 2 PG Care Time/CCT Total # of Minutes Spent Total Time Spent with Patient: Total time spent is greater than 50% in coordination of care (as documented) at patient's floor/unit and/or counseling patient: Coding Level of Care Code 11418 SUB INP/OBS CARE 2/35MIN Diagnoses Hypoxia R09.02 Infection due to human metapneumovirus (hMPV) B34.8 Acute exacerbation of chronic obstructive pulmonary disease J44.1
[2024-03-05 23:58] VITALS: TEMP 97.7
[2024-03-06 05:14] LABS: Creatinine Clr Calc Pharmacy 55.8 ml/min
[2024-03-06 07:17] VITALS: O2SAT 92
[2024-03-06 07:44] VITALS: RESP 20
[2024-03-06] MEDS: predniSONE 20 MG TAB PO STA (10:18)
[2024-03-06 10:36] VITALS: BP 99/65; PULSE 94
--- NOTE | 2024-03-06 11:18 | Discharge Summary ---
Discharge Summary Date of Service March 06, 2024 Principal Dx & Hospital Course #1 = Principal Diagnosis (1) Hypoxia: Patient presented to the ED on 03/03 for SOB. -CXR shows no acute cardiopulmonary findings. -CTA chest reads "Diffuse centrilobular and panlobular emphysema are noted involving bilateral lungs" -Respiratory biofire + for human metapneumovirus -Negative procal -CBC: w/o leukocytosis -BMP: renal/electrolytes stable. -BC negative at 48h kathy -Hypertonic saline BID throughout hospital stay -Guaifenesin, continue on discharge. -hx of COPD - azithromycin for anti-inflammatory properties -added prednisone taper 03/06 to assist with symptoms. patient received 40mg PO prednisone 03/06 and advised to continue taper on discharge starting 03/07 at home. -continue Breo Ellipta and albuterol prn outpatient. sent in updated scripts to pharmacy. -2 step completed by respiratory therapy. Patient requires 2L of oxygen via nasal cannula during ambulation. (2) Infection due to human metapneumovirus (hMPV): see plan above. (3) Acute exacerbation of chronic obstructive pulmonary disease: see plan above. Plan Chronic conditions: HTN: Losartan Admission HPI Per Admitting Provider Albina Degroot is a 78 year-old female with medical history significant for HTN, HLD, tachycardia, COPD who presented to [facility] ED via EMS due to hypoxia. States she has been sick since about Thanks- has never fully recovered. States that she has many family members around her who are sick, states her son currently has pneumonia. States she lives alone, is independent in her daily activities but has not done much except sit at home for the past few days as she has felt unwell. States she had pneumonia about 7years ago and was given inhalers for that, but does not recall other pulmonary diagnoses in the past. Denies fever, but feels feverish. Decreased appetite but adequate PO intake. Denies nausea/vomiting/diarrhea. States her pulse ox before coming in was "in the 80s%". Endorses productive cough and worsening SOB, although feels that her breathing has improved since being on the oxygen in the ED. Denies chest pain. ED Course: -CXR -CTA chest -CBC, CMP, blood cultures, UA -Zosyn, IV solumedrol Discharge Exam Constitutional WD/WN, vitals as above Eyes PERRL, conjunctivae normal, anicteric sclerae Respiratory expiratory wheezing. normal respiratory effort Cardiovascular RRR, no murmur, no edema Psychiatric A+Ox3, euthymic affect Discharge Plan Discharge Items Patient Disposition: Home - Self-Care Reason For Visit: HYPOXIA Discharge Diagnosis: hPMV, COPD Condition on Discharge: Fair Activity: Resume your previous activity Lifting: None Non-emergency contact: Primary Care Provider Call non-emergency contact if: you have any medication questions and your symptoms worsen Follow-up/Referrals: Nicky Aldana MD [Primary Care Provider] - 03/11/24 10:30 am Diet: Regular Addtl Attending Provider Instructions: Ms. Degroot, You were recently hospitalized for shortness of breath. You were found to have a respiratory viral illness along with COPD. You were treated supportively and responded appropriately. Please see recommendations below regarding your discharge. 1. Please take prednisone taper as prescribed. You had a dose in the hospital today so your first dose at home will be 03/07. 2. Please use 2L of oxygen while ambulating. 3. Please take your Breo Ellipta inhaler for COPD daily. 4. Please use albuterol inhaler as needed every 6 hours for worsened shortness of breath or wheezing. 5. Please use Mucinex twice a daily to aide with your congestion for the next several days. (1-3 days). 5. You may resume the remainder of your outpatient medications. If you develop any worsening symptoms including shortness of breath, coughing, wheezing please report back to the ER for further care. Sincerely, Rossy Álvarez PA-C Pending Studies at Discharge: No Stand-Alone Forms: [facility] Respiratory Motion, Smoking Cessation Medications and DC Order Prescriptions: New prednisone 10 mg tablet 10 mg PO DIRECTED Qty: 26 0RF Rx Instructions: Please take 4 tablets by mouth for 2 days followed by 3 tablets by mouth for 3 days followed by 2 tablets by mouth for 3 days followed by 1 tablet by mouth for 3 days. Continued losartan 25 mg tablet 25 mg PO DAILY Qty: 90 1RF multivitamin Capsule 1 cap PO DAILY ascorbate calcium (vitamin C) 500 mg tablet 500 mg PO DAILY omega-3 fatty acids [Fish Oil Concentrate] 1,000 mg capsule 1,000 mg PO DAILY cholecalciferol (vitamin D3) 25 mcg (1,000 unit) capsule 25 mcg PO DAILY calcium carb-magnesium carb 250-300 mg tablet 1 tab PO DAILY albuterol sulfate 90 mcg/actuation HFA aerosol inhaler 2 puff INH QID PRN (Reason: shortness of breath or wheezing) Qty: 18 1RF fluticasone furoate-vilanterol 200-25 mcg/dose blister with device 1 inh inhalation DAILY Qty: 3 1RF Discharge Orders: Discharge Order (Routine); Ordered 03/06/24 Ordered By: Rossy Álvarez Admission Data Admit Date/Time: 03/03/24 01:19 Attending Provider: Doug Armas Admit Provider: Danae May Primary Care Provider: Nicky Aldana Other Providers: Razia Hernandez Other Interventions: Discharge Summary Assessment (RN) Last Done: 03/06/24 10:34 Hospital Stay Data Consultations 03/03/24 00:55 ED Decision to Admit Stat Diagnostic Imagining Performed 03/02/24 23:29 CT angio chest PE protocol Stat Pending Results Patient Have Any Pending Studies at Discharge: No Discharge Instructions Given to Patient (Per Discharging Provider) Ms. Degroot, Jos were recently hospitalized for shortness of breath. You were found to have a respiratory viral illness along with COPD. You were treated supportively and responded appropriately. Please see recommendations below regarding your discharge. 1. Please take prednisone taper as prescribed. You had a dose in the hospital today so your first dose at home will be 03/07. 2. Please use 2L of oxygen while ambulating. 3. Please take your Breo Ellipta inhaler for COPD daily. 4. Please use albuterol inhaler as needed every 6 hours for worsened shortness of breath or wheezing. 5. Please use Mucinex twice a daily to aide with your congestion for the next several days. (1-3 days). 5. You may resume the remainder of your outpatient medications. If you develop any worsening symptoms including shortness of breath, coughing, wheezing please report back to the ER for further care. Sincerely, Rossy Álvarez PA-C Total Time Total Time Spent Total Time Spent (In Minutes): 45 Total Time Includes: Examination of the Patient, Discharge Planning and Medication Reconciliation Coding Level of Care Code 95656 INP/OBS DISCH >30 MIN Diagnoses Hypoxia R09.02 Infection due to human metapneumovirus (hMPV) B34.8 Acute exacerbation of chronic obstructive pulmonary disease J44.1
== END 2024-03-06 13:38 | disposition home or self-care (01) | DRG 190 ==
LOC: ED 22:27 → 2W 03-03 01:19 → SUATTDRO 03-03 01:19 → 2W 03-03 02:14
DX: J96.01 Acute respiratory failure with hypoxia; Z66 Do not resuscitate; Z88.8 Allergy status to other drugs, medicaments and biological substances; Z79.899 Other long term (current) drug therapy; B97.81 Human metapneumovirus as the cause of diseases classified elsewhere; I10 Essential (primary) hypertension; E78.5 Hyperlipidemia, unspecified; E87.6 Hypokalemia; J44.1 Chronic obstructive pulmonary disease with (acute) exacerbation; J43.9 Emphysema, unspecified; Z87.891 Personal history of nicotine dependence